=== PATIENT | female | born 1990 | race Caucasian/White ===

== ENCOUNTER 2018-02-13 09:34 | Inpatient (IN) | payer MEDICAID, OTHER ==
--- NOTE | 2018-02-13 09:59 | ED ---
General Adult HPI - General Chief complaint: Overdose Stated complaint: Mental Health/Overdose Time Seen by Provider: 02/13/18 09:43 Source: patient, family, RN notes reviewed Mode of arrival: ambulatory Limitations: no limitations - History of Present Illness Initial comments: This is a 27-year-old female presents emergency from for mental health. Patient states that she is not suicidal thoughts because she does not want to go through withdrawal. Patient is a daily heroin user. Patient reportedly used Benadryl, Ambien, oxycodone and Xanax late last night early this morning to help her symptoms. Patient reportedly took at least 5 Benadryl, 1 Xanax 1 oxycodone and an unknown amount of Ambien. Patient was drowsy this morning though she is awake alert and oriented at this time. Him and states that she seems to be her usual self. Patient is tearful she denies any physical complaints. Patient states that she snorts heroin at this time. Patient denies any physical complaints. Patient states she is not homicidal. She does admit to alcohol use last night. - Related Data Home Medications Medication Instructions Recorded Confirmed Acetaminophen Tab [Tylenol Tab] 650 mg PO Q4H PRN 02/13/18 02/13/18 Allergies Allergy/AdvReac Type Severity Reaction Status Date / Time No Known Allergies Allergy Verified 02/13/18 10:17 Review of Systems ROS Statement: Those systems with pertinent positive or pertinent negative responses have been documented in the HPI. ROS Other: All systems not noted in ROS Statement are negative. Past Medical History Past Medical History: No Reported History History of Any Multi-Drug Resistant Organisms: None Reported Past Surgical History: No Surgical Hx Reported Past Psychological History: ADD/ADHD Smoking Status: Current every day smoker Past Alcohol Use History: Daily Past Drug Use History: Heroin General Exam Limitations: no limitations General appearance: alert, in no apparent distress Head exam: Present: atraumatic, normocephalic, normal inspection Eye exam: Present: normal appearance, PERRL, EOMI. Absent: scleral icterus, conjunctival injection, periorbital swelling ENT exam: Present: normal exam, normal oropharynx, mucous membranes moist, TM's normal bilaterally Neck exam: Present: normal inspection, full ROM. Absent: tenderness, meningismus, lymphadenopathy Respiratory exam: Present: normal lung sounds bilaterally. Absent: respiratory distress, wheezes, rales, rhonchi, stridor Cardiovascular Exam: Present: regular rate, normal rhythm, normal heart sounds. Absent: systolic murmur, diastolic murmur, rubs, gallop, clicks GI/Abdominal exam: Present: soft, normal bowel sounds. Absent: distended, tenderness, guarding, rebound, rigid Neurological exam: Present: alert, oriented X3, CN II-XII intact, reflexes normal. Absent: motor sensory deficit Psychiatric exam: Present: depressed, other (Patient is tearful) Skin exam: Present: warm, dry, intact, normal color. Absent: rash Course Vital Signs 02/13/18 02/13/18 02/13/18 09:37 11:18 13:18 Temperature 97.8 F Pulse Rate 80 86 93 Respiratory 18 20 18 Rate Blood Pressure 107/69 112/67 108/73 O2 Sat by Pulse 99 98 96 Oximetry EKG Findings - EKG Comments: EKG Findings:: EKG performed at 11:29 normal sinus rhythm with a rate of 88 IA 146 QRS 76 QT/QTC 370/447 Medical Decision Making - Lab Data Result diagrams: 02/13/18 10:30 02/13/18 10:30 Lab Results 02/13/18 02/13/18 02/13/18 Range/Units 10:04 10:04 10:30 WBC (3.8-10.6) k/uL RBC (3.80-5.40) m/uL Hgb (11.4-16.0) gm/dL Hct (34.0-46.0) % MCV (80.0-100.0) fL MCH (25.0-35.0) pg MCHC (31.0-37.0) g/dL RDW (11.5-15.5) % Plt Count (150-450) k/uL Neutrophils % % Lymphocytes % % Monocytes % % Eosinophils % % Basophils % % Neutrophils # (1.3-7.7) k/uL Lymphocytes # (1.0-4.8) k/uL Monocytes # (0-1.0) k/uL Eosinophils # (0-0.7) k/uL Basophils # (0-0.2) k/uL Sodium 148 H (137-145) mmol/L Potassium 3.9 (3.5-5.1) mmol/L Chloride 107 (98-107) mmol/L Carbon Dioxide 27 (22-30) mmol/L Anion Gap 14 mmol/L BUN 12 (7-17) mg/dL Creatinine 0.56 (0.52-1.04) mg/dL Est GFR (CKD-EPI)AfAm >90 (>60 ml/min/1.73 sqM) Est GFR (CKD-EPI)NonAf >90 (>60 ml/min/1.73 sqM) Glucose 90 (74-99) mg/dL Calcium 9.5 (8.4-10.2) mg/dL Total Bilirubin 0.5 (0.2-1.3) mg/dL AST 21 (14-36) U/L ALT 25 (9-52) U/L Alkaline Phosphatase 43 (38-126) U/L Total Protein 7.0 (6.3-8.2) g/dL Albumin 4.3 (3.5-5.0) g/dL Urine Color Yellow Urine Appearance Cloudy H (Clear) Urine pH 6.5 (5.0-8.0) Ur Specific [place] 1.033 (1.001-1.035) Urine Protein 1+ H (Negative) Urine Glucose (UA) Negative (Negative) Urine Ketones Negative (Negative) Urine Blood Trace H (Negative) Urine Nitrite Negative (Negative) Urine Bilirubin Negative (Negative) Urine Urobilinogen 2.0 (<2.0) mg/dL Ur Leukocyte Esterase Large H (Negative) Urine RBC 7 H (0-5) /hpf Urine WBC 6 H (0-5) /hpf Ur Squamous Epith Cells 11 H (0-4) /hpf Urine Bacteria Rare H (None) /hpf Urine Mucus Many H (None) /hpf Urine HCG, Qual Not Detected (Not Detectd) Salicylates 2.3 mg/dL Urine Opiates Screen Not Detected (NotDetected) Ur Oxycodone Screen Detected H (NotDetected) Urine Methadone Screen Not Detected (NotDetected) Ur Propoxyphene Screen Not Detected (NotDetected) Acetaminophen <10.0 ug/mL Ur Barbiturates Screen Not Detected (NotDetected) U Tricyclic Antidepress Not Detected (NotDetected) Ur Phencyclidine Scrn Not Detected (NotDetected) Ur Amphetamines Screen Not Detected (NotDetected) U Methamphetamines Scrn Not Detected (NotDetected) U Benzodiazepines Scrn Detected H (NotDetected) Urine Cocaine Screen Not Detected (NotDetected) U Marijuana (THC) Screen Not Detected (NotDetected) 02/13/18 02/13/18 Range/Units 10:30 14:08 WBC 6.1 (3.8-10.6) k/uL RBC 4.36 (3.80-5.40) m/uL Hgb 13.5 (11.4-16.0) gm/dL Hct 39.3 (34.0-46.0) % MCV 90.2 (80.0-100.0) fL MCH 31.0 (25.0-35.0) pg MCHC 34.3 (31.0-37.0) g/dL RDW 12.6 (11.5-15.5) % Plt Count 284 (150-450) k/uL Neutrophils % 58 % Lymphocytes % 29 % Monocytes % 4 % Eosinophils % 5 % Basophils % 1 % Neutrophils # 3.6 (1.3-7.7) k/uL Lymphocytes # 1.8 (1.0-4.8) k/uL Monocytes # 0.3 (0-1.0) k/uL Eosinophils # 0.3 (0-0.7) k/uL Basophils # 0.1 (0-0.2) k/uL Sodium (137-145) mmol/L Potassium (3.5-5.1) mmol/L Chloride (98-107) mmol/L Carbon Dioxide (22-30) mmol/L Anion Gap mmol/L BUN (7-17) mg/dL Creatinine (0.52-1.04) mg/dL Est GFR (CKD-EPI)AfAm (>60 ml/min/1.73 sqM) Est GFR (CKD-EPI)NonAf (>60 ml/min/1.73 sqM) Glucose (74-99) mg/dL Calcium (8.4-10.2) mg/dL Total Bilirubin (0.2-1.3) mg/dL AST (14-36) U/L ALT (9-52) U/L Alkaline Phosphatase (38-126) U/L Total Protein (6.3-8.2) g/dL Albumin (3.5-5.0) g/dL Urine Color Urine Appearance (Clear) Urine pH (5.0-8.0) Ur Specific [place] (1.001-1.035) Urine Protein (Negative) Urine Glucose (UA) (Negative) Urine Ketones (Negative) Urine Blood (Negative) Urine Nitrite (Negative) Urine Bilirubin (Negative) Urine Urobilinogen (<2.0) mg/dL Ur Leukocyte Esterase (Negative) Urine RBC (0-5) /hpf Urine WBC (0-5) /hpf Ur Squamous Epith Cells (0-4) /hpf Urine Bacteria (None) /hpf Urine Mucus (None) /hpf Urine HCG, Qual (Not Detectd) Salicylates <1.0 mg/dL Urine Opiates Screen (NotDetected) Ur Oxycodone Screen (NotDetected) Urine Methadone Screen (NotDetected) Ur Propoxyphene Screen (NotDetected) Acetaminophen ug/mL Ur Barbiturates Screen (NotDetected) U Tricyclic Antidepress (NotDetected) Ur Phencyclidine Scrn (NotDetected) Ur Amphetamines Screen (NotDetected) U Methamphetamines Scrn (NotDetected) U Benzodiazepines Scrn (NotDetected) Urine Cocaine Screen (NotDetected) U Marijuana (THC) Screen (NotDetected) Disposition Clinical Impression: Drug abuse, Depression, Drug ingestion Disposition: ADMITTED IP TO THIS [facility] Condition: Stable Referrals: None,Stated [Primary Care Provider] - 1-2 days
[2018-02-13 10:41] LABS: Basophils # (A) 0.1 k/uL (0-0.2); Basophils % (A) 1 %; Eosinophils # (A) 0.3 k/uL (0-0.7); Eosinophils % (A) 5 %; HCT 39.3 % (34.0-46.0); HGB 13.5 gm/dL (11.4-16.0); Lymphocytes # (A) 1.8 k/uL (1.0-4.8); Lymphocytes % (A) 29 %; MCHC 34.3 g/dL (31.0-37.0); MCV 90.2 fL (80.0-100.0); Mean Platelet Volume 6.4; Monocytes # (A) 0.3 k/uL (0-1.0); Monocytes % (A) 4 %; Neutrophils # (A) 3.6 k/uL (1.3-7.7); Neutrophils % (A) 58 %; Platelet Count 284 k/uL (150-450); RBC 4.36 m/uL (3.80-5.40); RDW 12.6 % (11.5-15.5); WBC 6.1 k/uL (3.8-10.6)
[2018-02-13 10:45] LABS: Appearance,Urine Cloudy (Clear); Bacteria,Urine Rare /hpf; Bilirubin,Urine Negative (Negative); Blood,Urine Trace (Negative); Color,Urine Yellow; Glucose,Urine (UA) Negative (Negative); Ketones,Urine Negative (Negative); Leukocyte Esterase,Urine Large (Negative); Mucus,Urine Many /hpf; Nitrite,Urine Negative (Negative); PH, Urine 6.5 (5.0-8.0); Protein,Urine 1+ (Negative); RBC,Urine 7 /hpf (0-5); Specific Gravity,Urine 1.033 (1.001-1.035); Squamous Epithelial Cell,Urine 11 /hpf (0-4); WBC,Urine 6 /hpf (0-5)
[2018-02-13 10:51] LABS: Amphetamine Screen,Urine Not Detected (NotDetected); Barbiturate Screen,Urine Not Detected (NotDetected); Benzodiazepines Screen,Urine Detected (NotDetected); Cocaine Screen,Urine Not Detected (NotDetected); Methadone Screen, Urine Not Detected (NotDetected); Opiate Screen,Urine Not Detected (NotDetected); Oxycodone Screen, Urine Detected (NotDetected); Phencyclidine Screen,Urine Not Detected (NotDetected); Tricyclic Antidepressant,Urine Not Detected (NotDetected); Urn Cannabinoid Scrn Not Detected (NotDetected)
[2018-02-13 10:57] LABS: ALT 25 U/L (9-52); AST 21 U/L (14-36); Acetaminophen <10.0 ug/mL; Albumin 4.3 g/dL (3.5-5.0); Alkaline Phosphatase 43 U/L (38-126); Anion Gap 14 mmol/L; Blood Urea Nitrogen 12 mg/dL (7-17); Calcium 9.5 mg/dL (8.4-10.2); Carbon Dioxide 27 mmol/L (22-30); Chloride 107 mmol/L (98-107); Glucose 90 mg/dL (74-99); Potassium 3.9 mmol/L (3.5-5.1); Salicylate 2.3 mg/dL; Sodium 148 mmol/L (137-145); Total Bilirubin 0.5 mg/dL (0.2-1.3)
[2018-02-13] MEDS ORDERED: NICOTINE 21MG/24HR PATCH TRANSDERM STA (11:09)
[2018-02-13] MEDS ORDERED: ONDANSETRON 4 MG/2 ML VIAL IVP STA (11:46)
[2018-02-13] MEDS ORDERED: ALPRAZolam 0.5 MG TAB PO STA (13:33)
[2018-02-13] MEDS ORDERED: MAGNESIUM HYDROXIDE 2,400 MG/10 ML CUP PO PRN (15:54)
[2018-02-13] MEDS ORDERED: MAG HYDROX/AL HYDROX/SIMETH 30 ML CUP PO PRN (15:54)
[2018-02-13] MEDS ORDERED: LOPERAMIDE 2 MG CAP PO PRN (16:02)
[2018-02-13] MEDS: ACETAMINOPHEN TAB 325 MG TAB PO PRN ×2 (17:12→20:24)
[2018-02-13] MEDS: LORazepam 1 MG TAB PO PRN ×2 (17:12→23:06)
[2018-02-13] MEDS: cloNIDine HCL 0.1 MG TAB PO PRN (17:33)
[2018-02-13 17:50] VITALS: BMI 22.4
[2018-02-13] MEDS ORDERED: ONDANSETRON 4 MG TAB PO PRN (18:30)
--- NOTE | 2018-02-13 18:39 | P.HPMEDMHU ---
History of Present Illness H&P Date: 02/13/18 Chief Complaint: withdrawal Patient is a 27-year-old female with past medical history of ADD, depression, tobacco abuse, and heroin use who presented to the ER with complaint of overdose in trying it was treating her withdrawal symptoms. It was determined that she was not suitable for discharge home at her risk of continual overdose or relapsing on heroin and she was therefore admitted to the mental health unit. Patient seen and examined. She said that 3 AM she started having a cough, feeling sweaty and feverish and having nausea and vomiting. She then took some benzodiazepines, oxycodone, Benadryl, and Ambien in order to help with her withdrawal symptoms. She was feeling very anxious that she would withdraw. She reports that she has been having insomnia. She has a history of heroin abuse and was clean for 2 years and then relapsed 4 months ago. She denies any injection of heroin and states she is only snorting it. She has no other complaints currently. She denies any chest pain, shortness of breath, dysuria, urinary frequency, malodorous urine. Review of Systems Positives: + Nausea, + diaphoresis, + cough, + insomnia, + anxious Pertinent positives and negatives as discussed in HPI, a complete review of systems was performed and all other systems are negative. Past Medical History Past Medical History: No Reported History History of Any Multi-Drug Resistant Organisms: None Reported Additional Past Surgical History / Comment(s): Tympanostomy tubes Past Anesthesia/Blood Transfusion Reactions: No Reported Reaction Past Psychological History: ADD/ADHD, Depression Smoking Status: Current every day smoker Past Alcohol Use History: Occasional Additional Past Alcohol Use History / Comment(s): Social drinker. Past Drug Use History: Heroin Additional Drug Use History / Comment(s): Reports snorting heroin daily for the last 4 months, denies abusing prescription drugs other than last night, denies any other illicit drug use. 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 No significant issues noted on an osteopathic structural exam other than those noted in the History and Physical/Consult. Vitals: Vital Signs Temp Pulse Pulse Pulse Resp BP BP 02/13/18 17:32 96 18 108/68 02/13/18 17:21 97.9 F 78 16 109/73 02/13/18 16:07 98.2 F 94 18 104/65 02/13/18 13:18 93 18 108/73 02/13/18 11:18 86 20 112/67 02/13/18 09:37 97.8 F 80 18 107/69 Pulse Ox 02/13/18 17:32 02/13/18 17:21 02/13/18 16:07 98 02/13/18 13:18 96 02/13/18 11:18 98 02/13/18 09:37 99 Intake and Output 02/13/18 02/13/18 02/13/18 06:59 14:59 22:59 Other: Weight 58.967 kg 62.9 kg General: non toxic, no distress, appears at stated age, normal weight, disheveled Derm: no unusual rashes/lesions no unusual ecchymoses, warm, dry Head: atraumatic, normocephalic, symmetric Eyes: EOMI, no lid lag, anicteric sclera, pupils equal round reactive to light ENT: Nose and ears atraumatic, no thrush, no pharyngeal erythema Neck: No thyromegaly, no cervical lymphadenopathy, trachea midline, supple Mouth: no lip lesion, mucus membranes dry Cardiovascular: S1S2 reg, no murmur, positive posterior tibial pulse bilateral, no edema, capillary refill less than 2 seconds Lungs: CTA bilateral, no rhonchi, no rales , no accessory muscle use Abdominal: soft, nontender to palpation, no guarding, no appreciable organomegaly, normal bowel sounds Ext: no gross muscle atrophy, muscle strength 5 out of 5 in upper extremities grossly, no contractures, Neuro: CN II-XI grossly intact, light touch intact all 4 extremities, finger to nose within normal limits, Psych: Alert, oriented, flat affect, appears disengaged Cranial Nerve Examination - Cranial Nerves Cranial Nerve II- Optic: Intact Cranial Nerve III- Oculomotor: Intact Cranial Nerve IV- Trochlear: Intact Cranial Nerve V- Trigeminal: Intact Cranial Nerve - Abducens: Intact Cranial Nerve VII- Facial: Intact Cranial Nerve VIII- Auditory: Intact Cranial Nerve IX- Glossopharyngeal: Intact Cranial Nerve X- Vagus: Intact Cranial Nerve XI- Accessory: Intact Cranial Nerve XII- Hypoglossal: Intact Results CBC & Chem 7: 02/13/18 10:30 02/13/18 10:30 Labs: Abnormal Lab Results - Last 24 Hours (Table) 02/13/18 02/13/18 Range/Units 10:04 10:30 Sodium 148 H (137-145) mmol/L Urine Appearance Cloudy H (Clear) Urine Protein 1+ H (Negative) Urine Blood Trace H (Negative) Ur Leukocyte Esterase Large H (Negative) Urine RBC 7 H (0-5) /hpf Urine WBC 6 H (0-5) /hpf Ur Squamous Epith Cells 11 H (0-4) /hpf Urine Bacteria Rare H (None) /hpf Urine Mucus Many H (None) /hpf Ur Oxycodone Screen Detected H (NotDetected) U Benzodiazepines Scrn Detected H (NotDetected) Thrombosis Risk Factor Assmnt - DVT/VTE Prophylaxis DVT/VTE Prophylaxis: Low risk, early ambulation encouraged Assessment and Plan Assessment: Overdose - was attempting to treat withdrawal symptoms per patient - not sedated at this time - continue patient safety checks Heroin abuse with impending opiate withdrawal -Cessation encouraged -Zofran as needed for nausea, Imodium as needed for diarrhea and -Management of other withdrawal symptoms as per psychiatry -Offered patient hepatitis C and HIV testing, she declined at this time but states that if her withdrawal symptoms get better she would consider testing Insomnia -Melatonin -Inform nursing patient is requesting a sleeping pill, told patient that I could offer her melatonin but other meds will need to come from psychiatry. Tobacco abuse -Cessation -Nicotine replacement Anxiety -Your psych management Thank you for allowing us to participate in the care of this patient. We will follow peripherally. Do not hesitate to contact us with questions. Someone can be reached from the [facility] hospitalist group at all hours of the day at [phone].
[2018-02-13] MEDS: MELATONIN 5 MG TABLET PO PRN (20:24)
[2018-02-14] MEDS: cloNIDine HCL 0.1 MG TAB PO PRN ×3 (00:14→16:44)
[2018-02-14] MEDS: ZIPRASIDONE 20 MG VIAL IM PRN (02:26)
[2018-02-14] MEDS: LORazepam 1 MG TAB PO PRN ×3 (07:04→22:40)
[2018-02-14] MEDS: NICOTINE 21MG/24HR PATCH TRANSDERM SCH (08:27)
[2018-02-14 09:23] LABS: Basophils % (A) 1 %; Eosinophils # (A) 0.2 k/uL (0-0.7); Eosinophils % (A) 2 %; HCT 39.4 % (34.0-46.0); HGB 13.6 gm/dL (11.4-16.0); Lymphocytes # (A) 1.8 k/uL (1.0-4.8); Lymphocytes % (A) 22 %; MCH 30.8 pg (25.0-35.0); MCHC 34.6 g/dL (31.0-37.0); MCV 89.2 fL (80.0-100.0); Mean Platelet Volume 7.6; Monocytes # (A) 0.5 k/uL (0-1.0); Monocytes % (A) 7 %; Neutrophils # (A) 5.5 k/uL (1.3-7.7); Neutrophils % (A) 68 %; Platelet Count 241 k/uL (150-450); RBC 4.41 m/uL (3.80-5.40); RDW 12.8 % (11.5-15.5); WBC 8.1 k/uL (3.8-10.6)
[2018-02-14 09:25] LABS: Albumin 4.6 g/dL (3.5-5.0); Anion Gap 16 mmol/L; Calcium 10.1 mg/dL (8.4-10.2); Carbon Dioxide 22 mmol/L (22-30); Chloride 109 mmol/L (98-107); Glucose 103 mg/dL (74-99); Sodium 147 mmol/L (137-145); Total Bilirubin 0.9 mg/dL (0.2-1.3); Total Protein 7.5 g/dL (6.3-8.2)
[2018-02-14 10:04] LABS: ALT 27 U/L (9-52); AST 34 U/L (14-36); Alkaline Phosphatase 43 U/L (38-126); Blood Urea Nitrogen 13 mg/dL (7-17); Potassium 4.1 mmol/L (3.5-5.1)
[2018-02-14] MEDS: ACETAMINOPHEN TAB 325 MG TAB PO PRN (11:45)
--- NOTE | 2018-02-14 13:34 | HP ---
HISTORY AND PHYSICAL DATE OF SERVICE: 02/14/2018 IDENTIFYING DATA: A 27-year-old single female patient. HISTORY OF PRESENT ILLNESS: Ms. Napier presents to the inpatient psychiatric unit as a voluntary admission with recent concern of multiple pill overdose. She states that she got back into heroin 5 months ago, has been using daily lately, has been struggling with depression when she came in and even when she was using heroin. She says she deals with depression and anxiety. She denies that she had thoughts of harm to herself. She had thoughts that rather not deal with the withdrawals. There was a report by history that she had taken oxycodone, Xanax, Benadryl, and 10 Ambien. The patient states that she took 3 pills in total. She says it was not a thought of wanting to hurt herself, but she just could not sleep. She feels like her substance use is self medicating. She also states she was going through some withdrawals when she came into the hospital. PSYCHIATRIC HISTORY: She has never had any inpatient psychiatric admissions. No history of suicide attempts. She tried going places for treatment. She was placed on Paxil, which made her sick and none of the medications seemed to work. She was on medication Ritalin when she was younger, diagnosed with ADHD, but she had decreased appetite, so they took her off of it. It did help her. She admits to being a worrier. She says she worries all the time. She says everything gives her anxiety. PSYCHIATRIC FAMILY HISTORY: Nobody diagnosed that she knows of, but she thinks there is some depression and anxiety. MEDICAL HISTORY: Scoliosis, back pain, cartilage problem with her hips. CURRENT MEDICATIONS: Current medications are: 1. Tylenol p.r.n. 2. Maalox p.r.n. 3. Catapres p.r.n. 4. Imodium p.r.n. 5. Ativan p.r.n. 6. Milk of magnesia p.r.n. 7. Melatonin p.r.n. 8. Habitrol. 9. Zofran p.r.n. 10.Geodon p.r.n. DRUG AND ALCOHOL HISTORY: Daily heroin use lately. Her first use of heroin was in 2011. Her longest sobriety period has been 2-1/2 years. She has never been to rehab before. She is set to go to rehab at [facility] on Friday and she is pretty motivated for that. Only occasional alcohol use. SOCIAL HISTORY: She currently lives with her mom and step dad. She has never been . She has an on and off relationship. No children. Schooling; she graduated high school and did 2 years of [employer] school. 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 MENTAL STATUS EXAM: She is alert, cooperative, pleasant overall, not showing any agitation. Her mood is described as "a little bit better." She admits to some withdrawal symptoms, but it is better than yesterday. She denies any current thoughts of harm to self or others. Denies any current auditory or visual hallucinations. I do not note any significant disorientation or memory disturbance. Insight is adequate. Judgment shows evidence of recent impairment. IMPRESSIONS: 1. Unspecified depressive disorder. 2. Unspecified anxiety disorder, likely generalized anxiety disorder. 3. Opioid use disorder. PLAN/RECOMMENDATIONS: Patient is admitted to the inpatient psychiatric unit at [facility] on a voluntary basis. She will be placed on SP 15 minute precautions. She will participate in group and activity therapies. Baseline laboratory workup will be done on the patient and medical consultation will be ordered. She is currently on clonidine p.r.n. as well as Imodium p.r.n. and Zofran p.r.n. to help with opioid withdrawal symptoms. She will be initiated on Effexor XR 75 mg daily to help with depressive and anxiety component, may also help with components of her ADHD symptoms. Geodon p.r.n. is ordered for any agitation. We will look into support systems. She is set to go to rehab treatment starting this coming Friday. Will monitor regarding any suicidal ideations. Estimated length of stay is 3 to 5 days. Prognosis is guarded. We will continue to cover this patient through the weekend. MMODL / IJN: [id number] / MTDD
[2018-02-14] MEDS: VENLAFAXINE HCL ER 75 MG CAP PO SCH (13:37)
[2018-02-14] MEDS: MELATONIN 5 MG TABLET PO PRN (22:11)
[2018-02-15] MEDS: ACETAMINOPHEN TAB 325 MG TAB PO PRN ×3 (00:29→18:03)
[2018-02-15] MEDS: cloNIDine HCL 0.1 MG TAB PO PRN ×3 (00:29→18:02)
[2018-02-15] MEDS: LORazepam 1 MG TAB PO PRN ×3 (07:53→23:06)
[2018-02-15] MEDS: VENLAFAXINE HCL ER 75 MG CAP PO SCH (09:43)
[2018-02-15] MEDS: NICOTINE 21MG/24HR PATCH TRANSDERM SCH (09:43)
[2018-02-15] MEDS ORDERED: LORazepam 1 MG TAB PO ONE (18:28)
--- NOTE | 2018-02-15 18:31 | P.PN ---
Progress Note - Text Progress Note Date: 02/15/18 Interval history: Patient seen in cross coverage today again. She feels that the Effexor is making her feel jittery and more anxious. She states that she has felt symptoms similar with opioid withdrawal but it seems more intensified. She does not sleep well last night. She reports she feels more anxious than she does depressed. Mental status exam: She is alert and cooperative with the interview. She describes significant anxiety and jitteriness. She denies any thoughts of harm to self or others. She says she feels more anxious than she does depressed. She does not show any active evidence of psychosis. She does not show any agitation. Plan: We'll give a 1 time dose of Ativan to help with severe anxiety/feeling of jitteriness. Ativan is also ordered as needed. We'll put a hold on the Effexor XR at this point in time. Consider alternative medication to help depression/anxiety.
[2018-02-15] MEDS: MELATONIN 5 MG TABLET PO PRN (21:42)
[2018-02-16] MEDS: cloNIDine HCL 0.1 MG TAB PO PRN ×3 (01:11→17:59)
[2018-02-16] MEDS: ZIPRASIDONE 20 MG VIAL IM PRN (02:05)
[2018-02-16] MEDS: NICOTINE 21MG/24HR PATCH TRANSDERM SCH (10:03)
[2018-02-16] MEDS: ACETAMINOPHEN TAB 325 MG TAB PO PRN ×2 (10:28→22:14)
--- NOTE | 2018-02-16 11:10 | P.PN ---
Progress Note - Text Interval history: The patient's is found in her room she follows me to an interview room. She was admitted over the weekend with suicidal ideation and she had overused medication. She does have a history of heroin use disorder. She is scheduled to go to inpatient chemical dependency treatment tomorrow morning. She reports still having some physical sickness related to opiate withdrawal. She did not eat this morning she reports sleeping poorly last evening. It appears Dr. Burns initiated Effexor XR and she had adverse side effects. She states she never feels good with an antidepressant and does not wish to start one now. Mental status exam: The patient is a disheveled female hygiene is adequate. She is dressed in her own clothing. Speech is fluent and spontaneous. She endorses a depressed and anxious mood she is endorsing no thoughts of harming herself as she feels safe in the hospital. No report or evidence of psychosis no homicidal ideation intent or plan. She seated calmly in the chair she demonstrates no verbal or physical aggressiveness. No abnormal involuntary movements. She is oriented. She describes having baseline anxiety. Plan: The patient's does not wish to initiate another antidepressant. We will continue to monitor her for safety. We will monitor her oral intake. She requires another 24 hours of observation and we will plan to discharge her tomorrow morning so that she may attend inpatient chemical dependency treatment at [facility]. If we discharge her today she would be at high risk of relapsing which would compromise for safety. Vital signs reviewed.
[2018-02-16] MEDS: LORazepam 1 MG TAB PO PRN ×2 (13:00→20:38)
[2018-02-16] MEDS: MELATONIN 5 MG TABLET PO PRN (22:14)
[2018-02-17] MEDS: LORazepam 1 MG TAB PO PRN (03:47)
[2018-02-17 04:05] VITALS: BP 107/61; PULSE 112; RESP 14; TEMP 97.6
[2018-02-17] MEDS: cloNIDine HCL 0.1 MG TAB PO PRN (05:34)
[2018-02-17] MEDS: NICOTINE 21MG/24HR PATCH TRANSDERM SCH (09:04)
--- NOTE | 2018-02-17 09:47 | P.DS ---
Providers Date of admission: 02/13/18 15:50 Expected date of discharge: 02/17/18 Attending physician: Aly James Consults: 02/13/18 15:54 Consult Physician Routine Consulting Provider: Wes Garcia Consult Reason/Comments: H&P for mental health admision Do you want consulting provider notified?: Yes Primary care physician: Stated None - Discharge Diagnosis(es) (1) Depression Status: Acute Priority: High (2) Anxiety Status: Acute Priority: Medium (3) Opioid use disorder Status: Acute Priority: High Hospital Course: Brief summary of admission note: This patient is a 27-year-old single female who was admitted to the mental health unit with suspected suicidal ideation in the context of medication overdose. She had reported struggling with depression and anxiety and admitted to having thoughts of harming herself. It was initially thought that she had taken several pills including oxycodone , Xanax, Benadryl and Ambien. Later she stated she only took 3 pills in total. She described poor appetite and poor sleep for several days. For full detail presents referred to Dr. Burns's psychiatric evaluation dated 02/24/2018. Summary of hospital course: The patient was admitted to the mental health unit voluntarily. She was assessed by Dr. Burns. She was placed on Effexor XR 75 mg daily. Apparently she experienced some side effects with that medication and it was discontinued. Subsequently she stated she did not want to try any other antidepressants as she has been on several in the past. She selectively attended groups mostly due to opiate withdrawal symptoms. She reported a resolution of any suicidal ideation during the hospitalization. She had arranged for inpatient chemical dependency treatment at [facility] and she is due to start today. Social work has been in contact with the patient 's mother who will be transporting the patient to [place]. Mental status exam: The patient was discharged this morning prior to me seeing her. I discussed her status with staff. The patient was reporting no suicidal or homicidal ideation intent or plan. She was reporting no symptoms of psychosis. It was reported that she remain motivated for inpatient chemical dependency treatment. Impressions 1. Depression unspecified, anxiety unspecified, opioid use disorder Plan: The patient will be discharged from mental health unit today. Her mother will transport her to inpatient chemical dependency treatment at [facility]. The patient does not wish to have another antidepressant medication prescribed at this time. She did want to have the clonidine 0.1 mg at bedtime prescribed for sleep and Dr. Johnson accommodated. There is no imminent safety risk she is appropriate for transition to inpatient chemical dependency treatment. Naturally she is instructed to abstain from any use of alcohol or marijuana or any other illicit drug especially opiates. We discussed the use of these substances will elevate her safety risk. She is instructed to return to the hospital any acute safety concerns. Patient Condition at Discharge: Stable Plan - Discharge Summary Discharge Rx Participant: No New Discharge Prescriptions: New Nicotine 21Mg/24Hr Patch [Habitrol] 1 patch TRANSDERM DAILY #7 patch cloNIDine HCL [Catapres] 0.1 mg PO HS PRN #14 tab PRN Reason: Withdrawal symptoms Continue Acetaminophen Tab [Tylenol] 650 mg PO Q4H PRN PRN Reason: Pain Discharge Medication List Acetaminophen Tab [Tylenol] 650 mg PO Q4H PRN 02/13/18 [History] Nicotine 21Mg/24Hr Patch [Habitrol] 1 patch TRANSDERM DAILY #7 patch 02/17/18 [ Rx] cloNIDine HCL [Catapres] 0.1 mg PO HS PRN #14 tab 02/17/18 [Rx] Follow up Appointment(s)/Referral(s): intake,intake [Other] - 02/17/18 10:45 am [facility] [NON-STAFF] - 1 Week Patient Instructions/Handouts: Depression (DC), Anxiety (GEN) Discharge Disposition: HOME SELF-CARE
== END 2018-02-17 08:54 | disposition home or self-care (01) | DRG 918 ==
LOC: EC 09:34 → 3MHU 15:50
PROVIDERS: ADMIT Psychiatry & Neurology Psychiatry; ATTEND Psychiatry & Neurology Psychiatry
DX: T40.2X2A Poisoning by other opioids, intentional self-harm, initial encounter (principal); R45.851 Suicidal ideations; F11.23 Opioid dependence with withdrawal; M41.9 Scoliosis, unspecified; T42.4X2A Poisoning by benzodiazepines, intentional self-harm, initial encounter; T45.0X2A Poisoning by antiallergic and antiemetic drugs, intentional self-harm, initial encounter; T42.6X2A Poisoning by other antiepileptic and sedative-hypnotic drugs, intentional self-harm, initial encounter; F32.9 Major depressive disorder, single episode, unspecified; G47.00 Insomnia, unspecified; F41.1 Generalized anxiety disorder; M54.9 Dorsalgia, unspecified; F90.9 Attention-deficit hyperactivity disorder, unspecified type; F17.200 Nicotine dependence, unspecified, uncomplicated; Z71.6 Tobacco abuse counseling
CPT/HCPCS: 36415; 80053; 80306; 81001; 81025; 82075; 83520; 84443; 85025; 93005; 96374; 99285

== ENCOUNTER → 2018-03-24 | Outpatient (CLI) | payer OTHER ==
[2018-03-24 12:53] LABS: Basophils # (A) 0.1 k/uL (0-0.2); Basophils % (A) 1 %; Eosinophils # (A) 0.1 k/uL (0-0.7); Eosinophils % (A) 1 %; HCT 40.1 % (34.0-46.0); INR 1.1 (<1.2); Lymphocytes # (A) 1.3 k/uL (1.0-4.8); Lymphocytes % (A) 13 %; MCH 30.2 pg (25.0-35.0); MCHC 32.5 g/dL (31.0-37.0); MCV 92.9 fL (80.0-100.0); Mean Platelet Volume 6.4; Monocytes # (A) 0.5 k/uL (0-1.0); Monocytes % (A) 5 %; Neutrophils # (A) 7.8 k/uL (1.3-7.7); Neutrophils % (A) 78 %; Partial Thromboplastin Time 25.1 sec (22.0-30.0); Platelet Count 334 k/uL (150-450); Prothrombin Time 10.5 sec (9.0-12.0); RBC 4.31 m/uL (3.80-5.40); RDW 13.1 % (11.5-15.5); WBC 9.9 k/uL (3.8-10.6)
[2018-03-24 13:12] LABS: ALT 26 U/L (9-52); AST 23 U/L (14-36); Albumin 4.7 g/dL (3.5-5.0); Alkaline Phosphatase 60 U/L (38-126); Anion Gap 6 mmol/L; Blood Urea Nitrogen 20 mg/dL (7-17); C Reactive Protein <5.0 mg/L (<10.0); Calcium 9.8 mg/dL (8.4-10.2); Carbon Dioxide 29 mmol/L (22-30); Chloride 106 mmol/L (98-107); Cholesterol 204 mg/dL (<200); Creatine Kinase 119 U/L (30-135); Glucose 90 mg/dL (74-99); HDL Cholesterol 71 mg/dL (40-60); LDL Cholesterol,Calculated 107 mg/dL (0-99); Potassium 4.2 mmol/L (3.5-5.1); Sodium 141 mmol/L (137-145); Total Bilirubin 1.2 mg/dL (0.2-1.3); Total Protein 7.6 g/dL (6.3-8.2); Triglycerides 129 mg/dL (<150)
[2018-03-24 14:49] LABS: Erythrocyte Sedimentation Rate 2 mm/hr (0-20)
[2018-03-24 17:59] LABS: Urine Alcohol Negative (Negative); Urine Barbiturate Negative (Negative); Urine Cocaine Negative (Negative); Urine Methadone Negative (Negative); Urine Opiates Negative (Negative); Urine Phencyclidine Negative (Negative)
== END | disposition home or self-care (01) ==
LOC: LABWHC1 11:53
PROVIDERS: ATTEND Internal Medicine
DX: D64.9 Anemia, unspecified (principal); E87.8 Other disorders of electrolyte and fluid balance, not elsewhere classified; E78.5 Hyperlipidemia, unspecified; E55.9 Vitamin D deficiency, unspecified; M79.81 Nontraumatic hematoma of soft tissue; D68.9 Coagulation defect, unspecified
CPT/HCPCS: 36415; 80053; 80061; 80306; 82306; 82550; 84439; 84443; 85025; 85610; 85652; 85730; 86140